=== PATIENT | male | born 1985 | race Caucasian/White ===

== ENCOUNTER 2016-11-13 12:28 | Emergency (ER) | payer SELFPAY ==
[2016-11-13 12:39] VITALS: BP 119/72; PULSE 75; RESP 16; TEMP 97.7; O2SAT 96
--- NOTE | 2016-11-13 12:53 | EDPHY ---
H & P Stated Complaint: r lower tooth/gum abcess since sat/swelling noted Time Seen by Provider: 11/13/16 12:51 HPI/ROS: CHIEF COMPLAINT: Facial swelling HISTORY OF PRESENT ILLNESS: The patient presents to the ED for right mandibular facial swelling which has been progressively worsening since Saturday. The patient does have a history of a chronic tooth fracture involving his number 30 tooth. The patient denies history of prior oral cellulitis, apical abscess or dental procedures. The patient denies past medical his history such as diabetes, asthma or hypertension. The patient takes no regular medications. He has no allergies to medication. The patient reports moderate pain and swelling. He denies additional complaints. REVIEW OF SYSTEMS: A comprehensive 10 point review of systems is otherwise negative aside from elements mentioned in the history of present illness. Source: Patient Exam Limitations: No limitations - Personal History Current Tetanus/Diphtheria Vaccine: Yes - Medical/Surgical History Hx Asthma: No Hx Chronic Respiratory Disease: No Hx Diabetes: No Hx Cardiac Disease: No Hx Renal Disease: No Hx Cirrhosis: No Hx Alcoholism: No Hx HIV/AIDS: No Hx Splenectomy or Spleen Trauma: No Other PMH: denies - Social History Smoking Status: Current every day smoker - Physical Exam Exam: General Appearance: Alert, no distress Eyes: Pupils equal and round no pallor or injection ENT, Mouth: Apical abscess noted likely originating from number 30 tooth, associated soft tissue mandibular swelling, no trismus Respiratory: There are no retractions, lungs are clear to auscultation Cardiovascular: Regular rate and rhythm Gastrointestinal: Abdomen is soft and nontender, no masses, bowel sounds normal Neurological: A&O, normal motor function, normal sensory exam, normal cranial nerves Skin: Warm and dry, no rashes Musculoskeletal: Neck is supple nontender Extremities: symmetrical, full range of motion Constitutional: Initial Vital Signs Temperature (C) 36.5 C 11/13/16 12:37 Heart Rate 75 11/13/16 12:37 Respiratory Rate 16 11/13/16 12:37 Blood Pressure 119/72 11/13/16 12:37 O2 Sat (%) 96 11/13/16 12:37 O2 Delivery Mode Room Air Allergies/Adverse Reactions: No Known Allergies Allergy (Unverified 11/13/16 12:37) Home Medications: Medication Instructions Recorded Amoxicillin Trihydrate 500 mg PO Q8 #21 cap 11/13/16 [Amoxicillin] Hydrocodone/APAP 5/325 [[place] 1 - 2 each PO Q6 PRN #20 tab 11/13/16 5/325] Medical Decision Making ED Course/Re-evaluation: The patient presents to the ED with an odontogenic abscess. Consultation is made with the on-call oral surgeon. I spoke with Dr. Cm Martines at 1: 30 p.m.. He is happy to see this gentleman in his office this afternoon. The patient will be started on oral amoxicillin per his request. Dr. Antoine will see the patient in his office today at 2pm. Our human services case manager has made arrangements to get the patient transported to his office via taxi cab. Differential Diagnosis: Differential diagnosis considered includes apical abscess, facial cellulitis, retropharyngeal abscess, submandibular abscess - Data Points Medications Given: Discontinued Medications Amoxicillin (Amoxicillin) 500 mg PO EDNOW ONE PRN Reason: Protocol Stop: 11/13/16 13:23 Last Admin: 11/13/16 13:32 Dose: 500 mg Departure - Departure Disposition: Home, Routine, Self-Care Clinical Impression: Apical abscess Condition: Good Instructions: Dental Abscess (ED) Additional Instructions: 1. Please follow up with Dr. Cm Martines today at 2pm 2. Antibiotics as directed. 3. [place] as needed for pain. Referrals: Cm Martines DDS [Doctor of Dental Surgery] - As per Instructions Prescriptions: Amoxicillin Trihydrate [Amoxicillin] 500 mg PO Q8 #21 cap Hydrocodone/APAP 5/325 [[place] 5/325] 1 - 2 each PO Q6 PRN #20 tab PRN Reason: for pain
== END 2016-11-13 13:50 | disposition home or self-care (01) ==
DX: K04.7 Periapical abscess without sinus (principal); F17.200 Nicotine dependence, unspecified, uncomplicated

== ENCOUNTER 2018-11-01 01:26 | Emergency (ER) | payer OTHER ==
[2018-11-01 01:31] VITALS: BP 143/83
--- NOTE | 2018-11-01 01:36 | EDPHY ---
H & P Stated Complaint: spider bite on L leg, L lower back x1wk Time Seen by Provider: 11/01/18 01:35 HPI/ROS: HPI CHIEF COMPLAINT: "left leg spider bites" HISTORY OF PRESENT ILLNESS: 33-year-old homeless, presents emergency room stating that he has a erythematous red lesions on his left leg. He thinks there spider bites. He did not see a spider bite him. He denies any drug use. He is homeless and has poor hygiene. No fever. He has 3 circular erythematous lesions that appear to be infected skin borders. Past Medical History: Denies medical history Past Surgical History: Denies surgical Social History: Smokes tobacco, daily alcohol use. Homeless. Denies IV drug use. Family History: Noncontributory ROS REVIEW OF SYSTEMS: 10 Systems were reviewed and negative with the exception of the elements mentioned in the history of present illness. Exam Constitutional triage nursing summary reviewed, vital signs reviewed, awake/ alert. Eyes normal conjunctivae and sclera, EOMI, PERRLA. HENT normal inspection, atraumatic, moist mucus membranes, no epistaxis, neck supple/ no meningismus, no raccoon eyes. Respiratory clear to auscultation bilaterally, normal breath sounds, no respiratory distress, no wheezing. Cardiovascular rate normal, regular rhythm, no murmur, no edema, distal pulses normal. Gastrointestinal soft, non-tender, no rebound, no guarding, normal bowel sounds, no distension, no pulsatile mass. Genitourinary no CVA tenderness. Musculoskeletal no midline vertebral tenderness, full range of motion, no calf swelling, no tenderness of extremities, no meningismus, good pulses, neurovascularly intact. Skin left thigh and lateral leg and gluteus: 3 areas of erythema and warmth, no fluctuance, no significant abscess. Areas appear to be cellulitic. The area is approximately 2 x 3 cm in circumference. 3 discrete areas. No necrotizing fasciitis on exam. Neurologic awake, alert and oriented x 3, AAOx3, moves all 4 extremities equally, motor intact, sensory intact, CN II-XII intact, normal cerebellar, normal vision, normal speech. Psychiatric normal mood/affect. Heme/Lymph/Immune no lymphadenopathy. Differential Diagnosis: Includes but is not limited to in a particular order cellulitis, MRSA infection, strep infection, methamphetamine use, IV drug use, skin popping, early abscess Medical Decision Making: Plan for this patient warm compresses 2 to 3 times a day, Keflex and Bactrim. 1st dose given in the emergency room. Re-evaluation: Recommend the patient that he does warm compresses 2 to 3 times a day for 20 min Tries to best keep his hygiene is best as possible Antibiotics as prescribed Keflex and Bactrim. Patient understands return emergency room if the erythema gets worse, fever, worsening pain questions or concerns. At this time these are not amendable the drainage no significant abscess or fluctuance. Appears to be cellulitic. Source: Patient - Personal History Current Tetanus Diphtheria and Acellular Pertussis (TDAP): No - Medical/Surgical History Hx Asthma: No Hx Chronic Respiratory Disease: No Hx Diabetes: No Hx Cardiac Disease: No Hx Renal Disease: No Hx Cirrhosis: No Hx Alcoholism: No Hx HIV/AIDS: No Hx Splenectomy or Spleen Trauma: No Other PMH: Stap infection 2009 - Social History Smoking Status: Heavy smoker Constitutional: Initial Vital Signs Temperature (C) 36.3 C 11/01/18 01:28 Heart Rate 83 11/01/18 01:28 Respiratory Rate 18 11/01/18 01:28 Blood Pressure 143/83 H 11/01/18 01:28 O2 Sat (%) 95 11/01/18 01:28 O2 Delivery Mode Room Air Allergies/Adverse Reactions: No Known Allergies Allergy (Unverified 11/01/18 01:31) Home Medications: Medication Instructions Recorded Cephalexin [Keflex] 500 mg PO Q6H #28 cap 11/01/18 Sulfamethox/Tmp 800/160 mg 1 tab PO BID@1000,2200 #14 tab 11/01/18 [Bactrim Ds] Departure - Departure Disposition: Home, Routine, Self-Care Clinical Impression: Cellulitis Condition: Good Instructions: Cellulitis (ED) Additional Instructions: 1. Warm compresses 2 to 3 times a day for 20 min 2. Antibiotics as prescribed 3. Return if worse. Prescriptions: Cephalexin [Keflex] 500 mg PO Q6H #28 cap Sulfamethox/Tmp 800/160 mg [Bactrim Ds] 1 tab PO BID@1000,2200 #14 tab
[2018-11-01] MEDS ORDERED: CEPHALEXIN 500MG PREPACK#4 BTL TAKEHOME ONE (01:44)
[2018-11-01] MEDS ORDERED: SULFAMETHOX/TMP 800/160 MG 1 TAB PO ONE (01:44)
[2018-11-01] MEDS ORDERED: SULFAMET/TMP DS PREPACK#2 BTL TAKEHOME ONE (01:44)
[2018-11-01] MEDS ORDERED: CEPHALEXIN 500 MG CAP PO ONE (01:44)
== END 2018-11-01 02:03 | disposition home or self-care (01) ==
DX: L03.116 Cellulitis of left lower limb (principal); Z59.0 Homelessness

== ENCOUNTER 2018-11-26 01:02 | Emergency (ER) | payer OTHER ==
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
[2018-11-26] MEDS ORDERED: TDAP ADULT 0.5 ML INJ (BOOSTRIX) IM ONE (01:14)
[2018-11-26 05:02] VITALS: BP 95/57
== END 2018-11-26 05:18 | disposition home or self-care (01) ==
LOC: EDUNIT#
DX: S01.01XA Laceration without foreign body of scalp, initial encounter (principal); F10.920 Alcohol use, unspecified with intoxication, uncomplicated; R93.0 Abnormal findings on diagnostic imaging of skull and head, not elsewhere classified; Z59.0 Homelessness; Y04.8XXA Assault by other bodily force, initial encounter; Y92.9 Unspecified place or not applicable; Y93.9 Activity, unspecified; Y99.9 Unspecified external cause status

== ENCOUNTER 2019-02-19 12:00 | Emergency (ER) | payer OTHER | END 2019-02-19 14:04 | disposition home or self-care (01) | DX: M79.641 Pain in right hand (principal); M79.644 Pain in right finger(s); W19.XXXA Unspecified fall, initial encounter; F17.200 Nicotine dependence, unspecified, uncomplicated ==

== ENCOUNTER 2019-03-05 14:23 | Emergency (ER) | payer MEDICAID, OTHER ==
[~2019-03-05 14:23] MED LIST: CEPHALEXIN 500 MG CAP PO SCH; SULFAMETHOX/TMP 800/160 MG 1 TAB PO SCH
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
[2019-03-05 16:50] VITALS: BP 137/84
--- NOTE | 2019-03-05 17:22 | ASMTCMCOM ---
CM Note CM Note Notes: Case Management asked to MAP prescriptions for Keflex and Bactrim. Chart reviewed. Patient has visited this ED four times since October and does not have Medicaid or other insurance and appears to be transient. This CM met with patient to assess for resources. Patient is pleasant but rj. He tells me that he is aware of [facility] and the [facility] but would prefer to "stay outdoors as opposed to going there". When asked, patient tells me he is originally from [place] but has been moving around for a long time. He does not know how long he will be in [place]. He is not interested in following up with a provider and has recieved a referral for the [facility] and [facility]. I informed patient that we would be providing his antibiotics and encouarged him to take them as prescribed and to finish the medication. Patient denies desire for other CM or community resources at this time. Date Signed: 03/05/2019 05:20 PM Electronically Signed By:Yas Rasmussen RN
== END 2019-03-05 16:45 | disposition home or self-care (01) ==
DX: L03.115 Cellulitis of right lower limb (principal); S80.811D Abrasion, right lower leg, subsequent encounter; F17.200 Nicotine dependence, unspecified, uncomplicated